=== PATIENT | female | born 2000 | race Two or more races ===

== ENCOUNTER 2021-11-08 11:01 | Emergency (ER) | payer MEDICAID, OTHER ==
[~2021-11-08] VITALS: Ht 154.9 cm; Wt 48.5 kg
[2021-11-08 11:04] VITALS: BP 137/84
[2021-11-08] MEDS ORDERED: METH500T22 PO (12:37)
[2021-11-08] MEDS ORDERED: NAPR500T31 PO (12:37)
== END 2021-11-08 12:50 | disposition home or self-care (01) ==
LOC: ER 11:01
DX: S39.011A Strain of muscle, fascia and tendon of abdomen, initial encounter (principal); V43.52XA Car driver injured in collision with other type car in traffic accident, initial encounter; Y93.89 Activity, other specified; Y92.488 Other paved roadways as the place of occurrence of the external cause; Y99.8 Other external cause status
CPT/HCPCS: 74176

== ENCOUNTER 2024-04-10 12:48 | Emergency (ER) | payer MEDICAID ==
[~2024-04-10] VITALS: Ht 149.9 cm; Wt 58.4 kg
[2024-04-10 12:48] VITALS: BP 135/91; PULSE 91; RESP 16; O2SAT 97
[~2024-04-10 12:48] MED LIST: METH-1181 PO; NAPR-746 PO
[2024-04-10 13:50] LABS: Urine Bacteria FEW /hpf (None Seen); Urine Blood Negative /uL (Negative); Urine Clarity Clear (Clear); Urine Color Light-Yellow (Yellow); Urine Protein, UAD 1+ (Negative); Urine Urobilinogen Normal (Negative); Urine WBC 1 /hpf (0 - 5)
== END 2024-04-10 15:01 | disposition home or self-care (01) ==
LOC: ER 12:56
DX: G62.9 Polyneuropathy, unspecified (principal); Z79.899 Other long term (current) drug therapy
CPT/HCPCS: 81001